=== PATIENT | female | born 1930 | race Caucasian/White ===

== ENCOUNTER 2017-08-11 19:26 | Emergency (ER) | payer MEDICARE, OTHER ==
[~2017-08-11] VITALS: Ht 157.5 cm; Wt 74.8 kg
[2017-08-11 19:33] VITALS: BP 149/81
[2017-08-11] MEDS ORDERED: IBUPROFEN 600 MG TABLET PO ONE ×2 (20:00→20:18)
== END 2017-08-11 21:12 | disposition home or self-care (01) ==
LOC: ER 19:28
DX: M25.511 Pain in right shoulder (principal); I10 Essential (primary) hypertension; J45.909 Unspecified asthma, uncomplicated; F32.9 Major depressive disorder, single episode, unspecified; Z87.442 Personal history of urinary calculi
CPT/HCPCS: 73030-TC; 73060-TC

== ENCOUNTER 2019-09-11 18:02 | Emergency (ER) | payer MEDICARE, OTHER ==
[~2019-09-11] VITALS: Ht 149.9 cm; Wt 44.9 kg
[2019-09-11] MEDS: IV NS 0.9% 500 ML BAG IV ONE (18:30)
--- NOTE | 2019-09-11 18:30 | NUR ---
patient came in to the ER bib ra from home, c/o weakness and decreased appetite x 2 days, on 02 @ 2lpm via NC. Breathing evenly and unlabored. connected to the monitor and pulse ox. kept comfortable, will continue to monitor accordingly.
[2019-09-11 18:34] LABS: BASOPHILS # (AUTO) 0.1 /CMM (0.0-0.2); BASOPHILS % (AUTO) 0.2 % (0.0-2.0); EOSINOPHILS % (AUTO) 0.2 % (0.0-6.0); HEMATOCRIT 40 % (33-45); HEMOGLOBIN 12.5 g/dL (11.5-14.8); LYMPHOCYTES # (AUTO) 0.8 /CMM (0.8-4.8); MEAN CORPUSCULAR HGB CONC 32 g/dl (31.0-36.0); MEAN CORPUSCULAR VOLUME 85 fL (82-100); MONOCYTES # (AUTO) 1.2 /CMM (0.1-1.30); MONOCYTES % (AUTO) 4.3 % (2.0-12.0); NEUTROPHILS # (AUTO) 25.8 /CMM (1.8-8.9); NEUTROPHILS % (AUTO) 92.3 % (43.0-81.0); PLATELET COUNT (AUTO) 472 /CMM (150-450); RED BLOOD CELL COUNT(AUTO) 4.68 MIL/uL (4.0-5.2)
[2019-09-11 18:52] LABS: ALANINE AMINOTRANSFERASE 13 U/L (12-78); ALBUMIN 2.4 g/dL (3.4-5.0); ALKALINE PHOSPHATASE 65 U/L (46-116); ASPARTATE AMINOTRANSFERASE 13 U/L (15-37); BILIRUBIN,DIRECT 0.2 mg/dL (0.0-0.2); BILIRUBIN,TOTAL 0.4 mg/dL (0.2-1.0); CALCIUM, SERUM 9.4 mg/dL (8.5-10.1); CHLORIDE 94 mmol/L (98-107); CREATININE 0.9 mg/dL (0.6-1.3); GLUCOSE 199 mg/dL (74-106); POTASSIUM 3.2 mmol/L (3.5-5.1); SODIUM SERUM 136 mmol/L (136-145); TOTAL PROTEIN, SERUM 7.4 g/dL (6.4-8.2); UREA NITROGEN, BLOOD 28 mg/dL (7-18)
[2019-09-11 18:56] LABS: CARBON DIOXIDE 44 mmol/L (21-32)
--- NOTE | 2019-09-11 19:09 | NUR ---
urine collected and sent to lab
[2019-09-11 19:19] LABS: APPEARANCE,URINE Clear (CLEAR); BILIRUBIN,URINE Negative (NEGATIVE); BLOOD, URINE Small Ery/uL (NEGATIVE); COLOR,URINE Yellow (YELLOW); KETONES,URINE Negative (NEGATIVE); LEUKOCYTE ESTERASE ,URINE Negative (NEGATIVE); NITRITE, URINE Negative (NEGATIVE); PH,URINE 5.5 (5.0-8.0); PROTEIN,URINE 30 mg/dl (NEGATIVE); UGLUCOSE Negative (NEGATIVE); UROBILINOGEN,URINE 0.2 EU/dL (0.2)
--- NOTE | 2019-09-11 19:19 | NUR ---
report given to Petra CARDENAS for thompson.
[2019-09-11] MEDS: CEFTRIAXONE 1GM BAG (ER ONLY) 1 GM/50 ML PIGGYBACK IV ONE (19:32)
[2019-09-11 19:38] LABS: BACTERIA,URINE Few /HPF (None Seen); FINE GRANULAR CASTS,URINE Rare /LPF (None Seen); SQUAMOUS EPITHELIAL CELL,UR Moderate /HPF (None Seen); URINE AMORPHOUS URATE Moderate /HPF (None Seen); WBC,URINE 0-2 /HPF (0-3)
[2019-09-11 19:39] LABS: COARSE GRANULAR CASTS,URINE Rare /LPF (None Seen); MUCUS,URINE Few /LPF (None Seen)
[2019-09-11] MEDS ORDERED: CEFTRIAXONE 1GM BAG (ER ONLY) 50 ML IV ONE (19:45)
[2019-09-11 19:52] LABS: ALBUMIN 2.2 g/dL (3.4-5.0); BILIRUBIN,DIRECT 0.1 mg/dL (0.0-0.2); BILIRUBIN,TOTAL 0.3 mg/dL (0.2-1.0); TOTAL PROTEIN, SERUM 6.9 g/dL (6.4-8.2)
[2019-09-11] MEDS ORDERED: AZITHROMYCIN 500 MG VIAL ONE (19:52)
[2019-09-11] MEDS: IV NS 0.9% 1,000 ML BAG IV ONE (19:58)
--- NOTE | 2019-09-11 19:59 | NUR ---
CALLED MY FOR [facility]LS [facility]. ETA [id number] TRIP [phone]
[2019-09-11] MEDS: AZITHROMYCIN 500 MG in IV D5W 250 ML IV ONE (20:03)
--- NOTE | 2019-09-11 21:35 | NUR ---
Patient discharged to home in stable condition. Written and verbal after care instructions given. Patient verbalizes understanding of instruction.IV removed. Catheter intact and site benign. Pressure and 4x4 applied to site. No bleeding noted.
[2019-09-11 21:36] VITALS: BP 122/84
== END 2019-09-11 21:36 | disposition home or self-care (01) ==
LOC: ER 18:09
DX: J18.9 Pneumonia, unspecified organism (principal); I10 Essential (primary) hypertension; J45.909 Unspecified asthma, uncomplicated; F32.9 Major depressive disorder, single episode, unspecified; Z87.442 Personal history of urinary calculi; Z98.890 Other specified postprocedural states
CPT/HCPCS: 36415; 71045; 80048; 80076 ×2; 81001; 83605; 84145; 84484; 85025; 87040 ×2; 87086; 93005 ×2; 96365; 96367; 99284; J0456; J0696; J7030; J7040; J7060; 81000-TC